=== PATIENT | male | born 1995 | race Caucasian/White ===

== ENCOUNTER 2018-10-29 19:54 | Emergency (ER) | payer OTHER ==
[~2018-10-29] VITALS: Ht 175.3 cm; Wt 54.4 kg
[2018-10-29] MEDS ORDERED: ZPAK PO (20:24)
[2018-10-29] MEDS ORDERED: VENTOLIN HFA 1818 GM INH (20:24)
[2018-10-29] MEDS ORDERED: MEDROLDOSEPACK PO (20:24)
[2018-10-29 20:33] VITALS: BP 126/74
== END 2018-10-29 20:35 | disposition home or self-care (01) ==
LOC: M.ERS 19:54
DX: J40 Bronchitis, not specified as acute or chronic (principal); H92.02 Otalgia, left ear

== ENCOUNTER 2019-04-20 18:52 | Emergency (ER) | payer OTHER ==
[~2019-04-20] VITALS: Ht 177.8 cm; Wt 52.6 kg
[~2019-04-20 18:52] MED LIST: MEDROLDOSEPACK PO; VENTOLIN HFA 1818 GM INH; ZPAK PO
[2019-04-20] MEDS ORDERED: NORCO 7.5-3251 EACH PO (20:17)
[2019-04-20] MEDS ORDERED: DOXYCYCLINE 10100 MG PO (20:17)
[2019-04-20 20:39] VITALS: BP 139/85
== END 2019-04-20 20:39 | disposition home or self-care (01) ==
LOC: M.ERS 18:52
DX: N45.2 Orchitis (principal)

== ENCOUNTER 2019-04-21 12:12 | Emergency (ER) | payer OTHER ==
[~2019-04-21] VITALS: Ht 175.3 cm; Wt 53.5 kg
[~2019-04-21 12:12] MED LIST changes: +DOXYCYCLINE 10100 MG PO; +NORCO 7.5-3251 EACH PO
[2019-04-21 12:41] LABS: ABSOLUTE BASOPHILS 0.1 thou/uL (0.0-0.2); ABSOLUTE EOSINOPHILS 0.1 thou/uL (0.0-0.7); ABSOLUTE LYMPHOCYTES 1.2 thou/uL (0.8-5.3); ABSOLUTE MONOCYTES 0.6 thou/uL (0.0-1.2); ABSOLUTE NEUTROPHILS 10.3 thou/uL (1.6-8.1); BASOPHILS 0.4 %; EOSINOPHILS 1.2 %; HEMATOCRIT 45.9 % (42.0-52.0); HEMOGLOBIN 15.4 gm/dL (14.0-18.0); LYMPHOCYTES 9.6 %; MCH 29.2 pg (26.0-34.0); MCHC 33.5 g/dL (28.0-37.0); MCV 87.2 fL (80.0-100.0); MONOCYTES 5.1 %; MPV 7.4 fl. (7.2-11.1); NUCLEATED RBCS 0 /100WBC; PLATELET COUNT* 258 thou/uL (150-400); POLYS 83.7 %; RBC 5.27 mil/uL (4.50-6.00); RDW-CV 12.8 % (10.5-14.5); WBC 12.3 thou/uL (4.0-11.0)
[2019-04-21 12:49] LABS: CALCIUM 9.3 mg/dL (8.5-10.1); CREATININE 0.9 mg/dL (0.6-1.3)
[2019-04-21 12:53] LABS: ALBUMIN 4.2 g/dL (3.4-5.0); TOTAL BILIRUBIN 0.6 mg/dL (<0.1-1.0); TOTAL PROTEIN 8.1 g/dL (6.4-8.2)
[2019-04-21 14:59] VITALS: BP 130/88
== END 2019-04-21 15:05 | disposition home or self-care (01) ==
LOC: M.ERS 12:12
PROVIDERS: Physician Assistant
DX: N50.812 Left testicular pain (principal); R11.2 Nausea with vomiting, unspecified; R35.0 Frequency of micturition; R39.15 Urgency of urination

== ENCOUNTER 2019-06-01 19:29 | Emergency (ER) | payer OTHER ==
[~2019-06-01] VITALS: Ht 177.8 cm; Wt 53.1 kg
[2019-06-01 19:36] VITALS: BP 108/62
[2019-06-01] MEDS ORDERED: ZPAK PO (19:57)
== END 2019-06-01 20:02 | disposition home or self-care (01) ==
LOC: M.ERS 19:29
DX: Z20.818 Contact with and (suspected) exposure to other bacterial communicable diseases (principal)

== ENCOUNTER 2020-02-10 16:56 | Emergency (ER) | payer OTHER ==
[~2020-02-10] VITALS: Ht 175.3 cm; Wt 51.3 kg
[2020-02-10 17:52] LABS: HEMATOCRIT 41.3 % (42.0-52.0); HEMOGLOBIN 14.1 gm/dL (14.0-18.0); MCH 30.5 pg (26.0-34.0); MCHC 34.2 g/dL (28.0-37.0); MCV 89.2 fL (80.0-100.0); MPV 7.8 fl. (7.2-11.1); RBC 4.63 mil/uL (4.50-6.00); RDW-CV 13.6 % (10.5-14.5); WBC 10.1 thou/uL (4.0-11.0)
[2020-02-10 18:00] LABS: CALCIUM 8.8 mg/dL (8.5-10.1); CREATININE 1.2 mg/dL (0.6-1.3); POTASSIUM 3.8 mmol/L (3.5-5.1)
[2020-02-10 18:04] LABS: ALBUMIN 3.8 g/dL (3.4-5.0); TOTAL PROTEIN 7.7 g/dL (6.4-8.2)
[2020-02-10] MEDS ORDERED: NORCO 5-325 TA1 EAC1 PO (18:44)
[2020-02-10 18:55] VITALS: BP 124/70
== END 2020-02-10 18:56 | disposition home or self-care (01) ==
LOC: M.ERS 16:56
PROVIDERS: Emergency Medicine Emergency Medical Services
DX: S01.111A Laceration without foreign body of right eyelid and periocular area, initial encounter (principal); H11.32 Conjunctival hemorrhage, left eye; Y04.0XXA Assault by unarmed brawl or fight, initial encounter; Y93.89 Activity, other specified; Y92.89 Other specified places as the place of occurrence of the external cause; Y99.8 Other external cause status

== ENCOUNTER 2020-02-24 11:34 | Emergency (ER) | payer OTHER ==
[~2020-02-24] VITALS: Ht 175.3 cm; Wt 59.0 kg
[~2020-02-24 11:34] MED LIST changes: +NORCO 5-325 TA1 EAC1 PO
[2020-02-24 11:59] LABS: ABSOLUTE BASOPHILS 0.1 thou/uL (0.0-0.2); ABSOLUTE EOSINOPHILS 0.1 thou/uL (0.0-0.7); ABSOLUTE LYMPHOCYTES 1.4 thou/uL (0.8-5.3); ABSOLUTE MONOCYTES 0.4 thou/uL (0.0-1.2); ABSOLUTE NEUTROPHILS 9.6 thou/uL (1.6-8.1); BASOPHILS 0.9 %; EOSINOPHILS 0.5 %; HEMATOCRIT 41.4 % (42.0-52.0); HEMOGLOBIN 14.1 gm/dL (14.0-18.0); LYMPHOCYTES 11.8 %; MCH 30.3 pg (26.0-34.0); MCHC 34.1 g/dL (28.0-37.0); MCV 88.7 fL (80.0-100.0); MONOCYTES 3.7 %; MPV 7.1 fl. (7.2-11.1); NUCLEATED RBCS 0 /100WBC; PLATELET COUNT* 254 thou/uL (150-400); POLYS 83.1 %; RBC 4.66 mil/uL (4.50-6.00); RDW-CV 13.7 % (10.5-14.5); WBC 11.6 thou/uL (4.0-11.0)
[2020-02-24 12:34] LABS: CALCIUM 8.7 mg/dL (8.5-10.1); CREATININE 1.2 mg/dL (0.6-1.3); POTASSIUM 3.7 mmol/L (3.5-5.1)
[2020-02-24 12:38] LABS: ALBUMIN 3.7 g/dL (3.4-5.0); TOTAL BILIRUBIN 0.6 mg/dL (<0.1-1.0); TOTAL PROTEIN 7.5 g/dL (6.4-8.2)
[2020-02-24] MEDS ORDERED: HYDROCODON-ACE1 EAC7 PO (13:23)
[2020-02-24] MEDS ORDERED: ZOFRAN ODT4 MG PO (13:23)
[2020-02-24] MEDS ORDERED: TORADOL 10 MG T10 MG PO (13:23)
[2020-02-24] MEDS ORDERED: FLOMAX0.4 MG PO (13:23)
[2020-02-24 13:43] VITALS: BP 104/41
== END 2020-02-24 13:43 | disposition home or self-care (01) ==
LOC: M.ERS 11:34
PROVIDERS: Personal Emergency Response Attendant
DX: N23 Unspecified renal colic (principal)

== ENCOUNTER 2020-06-15 03:08 | Emergency (ER) | payer OTHER ==
[~2020-06-15] VITALS: Ht 175.3 cm; Wt 54.0 kg
[~2020-06-15 03:08] MED LIST changes: +FLOMAX0.4 MG PO; +HYDROCODON-ACE1 EAC7 PO; +TORADOL 10 MG T10 MG PO; +ZOFRAN ODT4 MG PO
[2020-06-15 03:41] LABS: ABSOLUTE BASOPHILS 0.1 thou/uL (0.0-0.2); ABSOLUTE EOSINOPHILS 0.1 thou/uL (0.0-0.7); ABSOLUTE LYMPHOCYTES 0.8 thou/uL (0.8-5.3); ABSOLUTE MONOCYTES 0.7 thou/uL (0.0-1.2); ABSOLUTE NEUTROPHILS 6.8 thou/uL (1.6-8.1); BASOPHILS 0.7 %; EOSINOPHILS 1.1 %; HEMATOCRIT 37.5 % (42.0-52.0); HEMOGLOBIN 13.1 gm/dL (14.0-18.0); LYMPHOCYTES 9.5 %; MCH 30.2 pg (26.0-34.0); MCHC 34.8 g/dL (28.0-37.0); MCV 86.8 fL (80.0-100.0); MONOCYTES 8.4 %; MPV 7.3 fl. (7.2-11.1); NUCLEATED RBCS 0 /100WBC; PLATELET COUNT* 151 thou/uL (150-400); POLYS 80.3 %; RBC 4.31 mil/uL (4.50-6.00); RDW-CV 13.2 % (10.5-14.5); WBC 8.5 thou/uL (4.0-11.0)
[2020-06-15 03:54] LABS: CALCIUM 8.4 mg/dL (8.5-10.1); CREATININE 1.1 mg/dL (0.6-1.3); POTASSIUM 3.6 mmol/L (3.5-5.1)
[2020-06-15 03:59] LABS: ALBUMIN 3.6 g/dL (3.4-5.0); MAGNESIUM 1.5 mg/dL (1.8-2.4); TOTAL BILIRUBIN 0.4 mg/dL (<0.1-1.0); TOTAL PROTEIN 7.1 g/dL (6.4-8.2)
[2020-06-15 04:09] LABS: URINE BILIRUBIN NEGATIVE (Negative); URINE BLOOD NEGATIVE (Negative); URINE CLARITY CLEAR; URINE COLOR YELLOW; URINE GLUCOSE-RANDOM NEGATIVE (Negative); URINE KETONES NEGATIVE (Negative); URINE LEUKOCYTES-REFLEX NEGATIVE (Negative); URINE NITRITE-REFLEX NEGATIVE (Negative); URINE PROTEIN NEGATIVE (Negative); URINE SPECIFIC GRAVITY 1.015 (1.005-1.030)
[2020-06-15] MEDS ORDERED: AMOXICILLIN875 MG PO (04:49)
[2020-06-15] MEDS ORDERED: ZOFRAN ODT4 MG PO (05:32)
[2020-06-15 05:42] VITALS: BP 108/64
== END 2020-06-15 05:43 | disposition home or self-care (01) ==
LOC: M.ERS 03:08
PROVIDERS: Personal Emergency Response Attendant
DX: J03.90 Acute tonsillitis, unspecified (principal); Z20.828 Contact with and (suspected) exposure to other viral communicable diseases; R11.2 Nausea with vomiting, unspecified; R10.9 Unspecified abdominal pain

== ENCOUNTER 2020-07-23 06:22 | Emergency (ER) | payer OTHER ==
[~2020-07-23] VITALS: Ht 175.3 cm; Wt 53.5 kg
[~2020-07-23 06:22] MED LIST changes: +AMOXICILLIN875 MG PO
[2020-07-23 07:07] LABS: INFLUENZA A ANTIGEN Negative (Negative); INFLUENZA B ANTIGEN Negative (Negative)
[2020-07-23 07:36] VITALS: BP 130/72
== END 2020-07-23 07:37 | disposition left against medical advice (07) ==
LOC: M.ERS 06:22
PROVIDERS: Emergency Medicine Emergency Medical Services
DX: B34.9 Viral infection, unspecified (principal); Z20.828 Contact with and (suspected) exposure to other viral communicable diseases

== ENCOUNTER 2020-08-24 21:09 | Emergency (ER) | payer OTHER ==
[~2020-08-24] VITALS: Ht 175.3 cm; Wt 54.4 kg
[2020-08-24 23:25] VITALS: BP 111/70
== END 2020-08-24 23:26 | disposition home or self-care (01) ==
LOC: M.ERS 21:09
DX: S62.354A Nondisplaced fracture of shaft of fourth metacarpal bone, right hand, initial encounter for closed fracture (principal); W22.8XXA Striking against or struck by other objects, initial encounter; Y93.89 Activity, other specified; Y92.89 Other specified places as the place of occurrence of the external cause; Y99.8 Other external cause status

== ENCOUNTER 2020-12-08 09:25 | Emergency (ER) | payer OTHER ==
[~2020-12-08] VITALS: Ht 172.7 cm; Wt 54.4 kg
[2020-12-08 09:54] LABS: ABSOLUTE EOSINOPHILS 0.1 thou/uL (0.0-0.7); ABSOLUTE LYMPHOCYTES 0.8 thou/uL (0.8-5.3); ABSOLUTE MONOCYTES 0.6 thou/uL (0.0-1.2); ABSOLUTE NEUTROPHILS 7.3 thou/uL (1.6-8.1); BASOPHILS 0.5 %; EOSINOPHILS 1.1 %; HEMATOCRIT 40.9 % (42.0-52.0); HEMOGLOBIN 13.7 gm/dL (14.0-18.0); LYMPHOCYTES 9.3 %; MCH 28.7 pg (26.0-34.0); MCHC 33.5 g/dL (28.0-37.0); MCV 85.7 fL (80.0-100.0); MPV 6.4 fl. (7.2-11.1); NUCLEATED RBCS 0 /100WBC; PLATELET COUNT* 190 thou/uL (150-400); POLYS 82.1 %; RBC 4.77 mil/uL (4.50-6.00); RDW-CV 14.5 % (10.5-14.5); WBC 8.9 thou/uL (4.0-11.0)
[2020-12-08 10:00] LABS: CALCIUM 9.1 mg/dL (8.5-10.1); POTASSIUM 3.7 mmol/L (3.5-5.1)
[2020-12-08 10:04] LABS: ALBUMIN 3.7 g/dL (3.4-5.0); APTT 24.5 Seconds (25.0-31.3); MAGNESIUM 1.7 mg/dL (1.8-2.4); PROTIME 10.3 Seconds (9.20-11.50); TOTAL BILIRUBIN 0.4 mg/dL (<0.1-1.0); TOTAL PROTEIN 7.4 g/dL (6.4-8.2)
[2020-12-08] MEDS ORDERED: IBUPROFEN 800800 M1 PO (11:11)
[2020-12-08] MEDS ORDERED: HYDROCODON-ACE1 EAC7 PO (11:11)
[2020-12-08 12:52] VITALS: BP 120/67
--- NOTE | 2020-12-08 17:36 | EKG ---
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1995 Requested By: Reddy Rider Order Number: [id number] MD: Andrea Wayne Measurements Intervals [place] Rate: 76 P: -66 HI: 138 QRS: 76 QRSD: 81 T: 72 QT: 347 QTc: 391 Interpretive Statements Ectopic atrial rhythm RSR' in V1 or V2, probably normal variant ST elev, probable normal early repol pattern Baseline wander in lead(s) II,III,aVL,aVF,V3,V4,V5,V6 No previous ECG available for comparison Electronically Signed On 12-08-2020 17:36:38 CDT by Andrea Wayne [email or web address] <ELECTRONICALLY SIGNED> By: Andrea Wayne MD, [facility] 12/08/20 1736 0 0 Andrea Wayne MD, FAC /EPI
== END 2020-12-08 12:54 | disposition home or self-care (01) ==
LOC: M.ERS 09:25
PROVIDERS: Emergency Medicine Emergency Medical Services
DX: R07.89 Other chest pain (principal)

== ENCOUNTER 2021-03-11 23:29 | Emergency (ER) | payer OTHER ==
[~2021-03-11] VITALS: Ht 175.3 cm; Wt 54.4 kg
[~2021-03-11 23:29] MED LIST changes: +IBUPROFEN 800800 M1 PO
[2021-03-11 23:34] VITALS: BP 111/71
== END 2021-03-12 00:48 | disposition home or self-care (01) ==
LOC: M.ERS 23:29
DX: H61.23 Impacted cerumen, bilateral (principal)

== ENCOUNTER 2021-04-12 12:49 | Emergency (ER) | payer OTHER ==
[~2021-04-12] VITALS: Ht 175.3 cm; Wt 51.3 kg
[2021-04-12 13:22] LABS: HEMATOCRIT 41.2 % (42.0-52.0); HEMOGLOBIN 14.4 gm/dL (14.0-18.0); MCH 30.7 pg (26.0-34.0); MCV 87.8 fL (80.0-100.0); MPV 6.7 fl. (7.2-11.1); NUCLEATED RBCS 0 /100WBC; PLATELET COUNT* 322 thou/uL (150-400); RDW-CV 12.8 % (10.5-14.5); WBC 14.2 thou/uL (4.0-11.0)
[2021-04-12 13:33] LABS: CALCIUM 8.8 mg/dL (8.5-10.1); POTASSIUM 3.5 mmol/L (3.5-5.1)
[2021-04-12 13:43] LABS: ALBUMIN 4.5 g/dL (3.4-5.0); TOTAL BILIRUBIN 0.3 mg/dL (<0.1-1.0); TOTAL PROTEIN 8.1 g/dL (6.4-8.2)
[2021-04-12 13:53] LABS: ABSOLUTE LYMPHOCYTES 0.7 thou/uL (0.8-5.3); ABSOLUTE MONOCYTES 0.4 thou/uL (0.0-1.2); ABSOLUTE NEUTROPHILS 13.1 thou/uL (1.6-8.1)
[2021-04-12 13:54] LABS: PLATELET ESTIMATE ADEQUATE
[2021-04-12 14:19] VITALS: BP 114/70
--- NOTE | 2021-04-13 14:06 | EKG ---
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: [facility] : 1995 Requested By: Peng Adams Order Number: [id number] MD: Andrea Wayne Measurements Intervals [place] Rate: 78 P: 54 VT: 143 QRS: 72 QRSD: 90 T: 73 QT: 382 QTc: 436 Interpretive Statements Sinus rhythm RSR' in V1 or V2, probably normal variant ST elev, probable normal early repol pattern Baseline wander in lead(s) I,V6 Compared to ECG 12/08/2020 09:31:10 Ectopic atrial rhythm no longer present ST (T wave) deviation still present Electronically Signed On 04-13-2021 14:06:21 CDT by Andrea Wayne [email or web address] <ELECTRONICALLY SIGNED> By: Andrea Wayne MD, [facility] 04/13/21 1406 09 09 Andrea Wayne MD, [facility] /EPI
== END 2021-04-12 14:19 | disposition home or self-care (01) ==
LOC: M.ERS 12:49
PROVIDERS: Emergency Medicine
DX: R11.2 Nausea with vomiting, unspecified (principal); F12.10 Cannabis abuse, uncomplicated; F10.129 Alcohol abuse with intoxication, unspecified; Y90.3 Blood alcohol level of 60-79 mg/100 ml

== ENCOUNTER 2021-04-18 18:42 | Emergency (ER) | payer OTHER ==
[~2021-04-18] VITALS: Ht 175.3 cm; Wt 52.2 kg
[2021-04-18] MEDS ORDERED: ADDERALL 10 MG10 MG PO (18:53)
[2021-04-18] MEDS ORDERED: MAGIC MOUTHWASH SW&SWALLOW (20:44)
[2021-04-18] MEDS ORDERED: ONDANSETRON HCL4 M2 PO (20:44)
[2021-04-18] MEDS ORDERED: AMOXIL 875 MG875 M1 PO (20:44)
[2021-04-18 21:02] VITALS: BP 120/77
== END 2021-04-18 21:02 | disposition home or self-care (01) ==
LOC: M.ERS 18:42
DX: J02.9 Acute pharyngitis, unspecified (principal); Z20.822 Contact with and (suspected) exposure to COVID-19; R51.9 Headache, unspecified; R11.0 Nausea

== ENCOUNTER 2021-04-20 05:02 | Emergency (ER) | payer OTHER ==
[~2021-04-20] VITALS: Ht 175.3 cm; Wt 51.7 kg
[~2021-04-20 05:02] MED LIST changes: +ADDERALL 10 MG10 MG PO; +AMOXIL 875 MG875 M1 PO; +MAGIC MOUTHWASH SW&SWALLOW; +ONDANSETRON HCL4 M2 PO
[2021-04-20 05:55] LABS: HEMATOCRIT 36.8 % (42.0-52.0); MCH 30.2 pg (26.0-34.0); MCHC 35.4 g/dL (28.0-37.0); MCV 85.5 fL (80.0-100.0); MPV 7.3 fl. (7.2-11.1); RBC 4.3 mil/uL (4.50-6.00); RDW-CV 12.6 % (10.5-14.5); WBC 8.3 thou/uL (4.0-11.0)
[2021-04-20 06:00] LABS: CALCIUM 8.6 mg/dL (8.5-10.1); CREATININE 1.1 mg/dL (0.6-1.3); POTASSIUM 3.5 mmol/L (3.5-5.1)
[2021-04-20 06:05] LABS: ALBUMIN 3.4 g/dL (3.4-5.0); TOTAL BILIRUBIN 0.5 mg/dL (<0.1-1.0); TOTAL PROTEIN 7.4 g/dL (6.4-8.2)
[2021-04-20 06:12] LABS: URINE BILIRUBIN NEGATIVE (Negative); URINE BLOOD NEGATIVE (Negative); URINE CLARITY CLEAR; URINE COLOR YELLOW; URINE GLUCOSE-RANDOM NEGATIVE (Negative); URINE KETONES 1+ (Negative); URINE LEUKOCYTES-REFLEX NEGATIVE (Negative); URINE NITRITE-REFLEX NEGATIVE (Negative); URINE PROTEIN NEGATIVE (Negative); URINE SPECIFIC GRAVITY 1.015 (1.005-1.030)
[2021-04-20 06:19] LABS: AMP/METHAMP Negative (Negative); BARBITURATES Negative (Negative); BENZODIAZEPINES POSITIVE (Negative); COCAINE Negative (Negative); METHADONE Negative (Negative); OPIATES Negative (Negative); PCP Negative (Negative); THC POSITIVE (Negative)
[2021-04-20] MEDS ORDERED: PROMS25 WY RECTAL (06:51)
[2021-04-20] MEDS ORDERED: PHENERGAN 25 MG25 MG PO (06:51)
[2021-04-20 06:57] VITALS: BP 98/54
== END 2021-04-20 06:57 | disposition home or self-care (01) ==
LOC: M.ERS 05:02
PROVIDERS: Personal Emergency Response Attendant
DX: E86.0 Dehydration (principal); Z79.899 Other long term (current) drug therapy

== ENCOUNTER 2021-05-11 09:57 | Emergency (ER) | payer OTHER ==
[~2021-05-11] VITALS: Ht 175.3 cm; Wt 52.6 kg
[~2021-05-11 09:57] MED LIST changes: +PHENERGAN 25 MG25 MG PO; +PROMS25 WY RECTAL
[2021-05-11 10:56] VITALS: BP 100/62
== END 2021-05-11 10:56 | disposition home or self-care (01) ==
LOC: M.ERS 09:57
DX: Z01.84 Encounter for antibody response examination (principal); Z20.822 Contact with and (suspected) exposure to COVID-19; Z79.899 Other long term (current) drug therapy

== ENCOUNTER 2021-10-08 00:05 | Emergency (ER) | payer OTHER ==
[~2021-10-08] VITALS: Ht 175.3 cm; Wt 54.4 kg
[2021-10-08 01:17] VITALS: BP 98/66
--- NOTE | 2021-10-08 12:24 | EKG ---
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1995 Requested By: Mary Garcia Order Number: [id number] MD: Luis Alberto Godfrey Measurements Intervals [place] Rate: 73 P: -49 SD: 145 QRS: 69 QRSD: 90 T: 65 QT: 357 QTc: 394 Interpretive Statements Sinus or ectopic atrial rhythm RSR' in V1 or V2, probably normal variant Compared to ECG 04/12/2021 13:10:10 Ectopic atrial rhythm now present Electronically Signed On 10-08-2021 12:23:57 FLEET SERVICE MANAGER by Luis Alberto Godfrey [email or web address] <ELECTRONICALLY SIGNED> By: Luis Alberto Godfrey MD, [facility] 10/08/21 1223 0009 0009 Luis Alberto Godfrey MD, [facility] /EPI
== END 2021-10-08 01:18 | disposition home or self-care (01) ==
LOC: M.ERS 00:05
DX: R07.89 Other chest pain (principal); F41.9 Anxiety disorder, unspecified